=== PATIENT | female | born 1980 | race African-American/Black ===

== ENCOUNTER 2017-09-17 06:03 | Day surgery (SDC) | payer BC, OTHER ==
[2017-09-16 09:40] VITALS: BMI 35.7
[2017-09-17 06:35] LABS: #Basophils 0.1 thou/uL (0.0-0.2); #Eosinphils 0.1 thou/uL (0.0-0.7); #Lymphocytes 3.8 thou/uL (1.20-3.40); #Monocytes 0.6 thou/uL (0.11-0.59); #Neutrophils 3.8 thou/uL (1.40-6.50); %Basophils 0.6 % (0.0-1.0); %Eosinophils 1.6 % (0.0-10.0); %Lymphocytes 44.9 % (21.0-51.0); %Monocytes 7.6 % (0.0-10.0); Hematocrit 45.7 % (36.0-47.0); Mean Platelet Volume 8.2 fL (7.4-10.4); Red Blood Cell (RBC) Count 4.87 mill/uL (4.20-5.40); White Blood Cell (WBC) Count 8.3 thou/uL (4.8-10.8)
[2017-09-17] MEDS ORDERED: Fentanyl 100 MCG/2 ML VIAL ONE ×2 (07:13→09:18)
[2017-09-17] MEDS ORDERED: Promethazine HCl 25 MG/ML VIAL ONE (07:13)
[2017-09-17] MEDS ORDERED: Midazolam HCl 2 mg/2 ml Vial ONE ×2 (07:13→07:52)
[2017-09-17] MEDS ORDERED: Bacitracin Zinc Ointment 30 gm TUBE ONE (07:15)
[2017-09-17] MEDS ORDERED: Betamet Acet/Betamet Na Ph 30 MG/5 ML VIAL ONE (07:15)
[2017-09-17] MEDS ORDERED: Bupivacaine PF 0.5% 30 ML VIAL ONE (07:15)
[2017-09-17] MEDS ORDERED: CEFAZOLIN/Water 2 GM/20 ML SYRINGE ONE (07:52)
[2017-09-17] MEDS ORDERED: Ketorolac Tromethamine 30 MG/ML VIAL ONE ×2 (07:59→09:05)
[2017-09-17] MEDS ORDERED: Glycopyrrolate 0.2 MG/ML 5 ML SYRINGE ONE (07:59)
[2017-09-17] MEDS ORDERED: Propofol 200 MG/20 ML VIAL ONE (07:59)
[2017-09-17] MEDS ORDERED: ePHEDrine/0.9% NaCl/PF SYRINGE 50 mg/10 ml ONE (07:59)
[2017-09-17] MEDS ORDERED: Ondansetron HCl/PF 4 MG/2 ML Vial ONE (07:59)
[2017-09-17] MEDS ORDERED: PHENYLEPHRINE-NS 100 MCG/ML 10 ML SYRINGE ONE (07:59)
[2017-09-17] MEDS ORDERED: Lidocaine 1% PF 5 ML VIAL ONE (07:59)
[2017-09-17] MEDS ORDERED: HYDROcodone/Acetaminophen 5/325 mg Tablet ONE (10:26)
--- NOTE | 2017-10-05 09:42 | OP ---
DATE OF SURGERY: 09/17/2017 SURGEON: Shawn Huang MD ANESTHESIA: General LMA technique augmented by 20 mL of 0.5% Marcaine block tung-incisional. PREOPERATIVE DIAGNOSIS: Carpal tunnel syndrome. POSTOPERATIVE DIAGNOSIS AND FINDINGS: Carpal tunnel syndrome, very tight transcarpal ligament and fl attened median nerve of 1 cm area in the center of the carpal tunnel. PROCEDURE PERFORMED: Right carpal tunnel release. SPECIMENS: None. ESTIMATED BLOOD LOSS: Less than 5 mL. TOURNIQUET TIME: 14 minutes. INDICATIONS: Failed conservative treatment including injection, therapy, medications, time, an d cessation of activity. Positive diagnostic studies and exam. DESCRIPTION OF PROCEDURE: After successful anesthesia listed above, the limb was prepped and draped. Timeout was done appropriately. The limb exsanguinated and tourniquet inflated to 250 mmHg pressur e. We outlined and made an incision along medial and lateral in line with the ring finger and as far dis dimple as Monroy's cardinal line as far proximal as 5 mm distal volar wrist flexion crease. This incisi on was carried through skin, subcutaneous tissue until we reached the transverse carpal ligament. Pr otecting all of the outline structures with combination of self-retaining retractor and Weitlaner, we used a Lakeland blade into the mid portion transverse carpal ligament. This was done just over the pa lmaris longus tendon. We then released under direct visualization using a combination of [place]eland blad e and tenotomy incisions, the transcarpal ligament from the midpoint distal and then from the midpoin t proximal. Direct visualization was used and we then saw there was no flexor tenosynovitis, but ind eed the patient did have a flattened 1 cm area with mild stippeling of the median nerve under the tra nsverse carpal ligament in the center of the carpal tunnel. Tourniquet deflated. Hemostasis obtained. A 3 mL Celestone dripped over the area of the median nerv e where there was flattening and the incision was closed with interrupted 4-0 nylon mattress pattern. Bulky dressing was applied. The patient left the operating room without evidence of anesthetic or operative complications.
== END 2017-09-17 10:46 | disposition home or self-care (01) ==
LOC: SDC 06:03
PROVIDERS: ATTEND Orthopaedic Surgery Hand Surgery
PROC: 01N50ZZ Release Median Nerve, Open Approach (ICD-10-PCS; principal; 2017-09-17)
DX: G56.01 Carpal tunnel syndrome, right upper limb (principal); F17.200 Nicotine dependence, unspecified, uncomplicated; Z90.710 Acquired absence of both cervix and uterus; Z98.890 Other specified postprocedural states
CPT/HCPCS: 36415; 85025; 96372; 96374; J0702; J1885; J2001; J2250; J2405; J2550; J2704; J3010; S0020

== ENCOUNTER 2018-05-15 18:19 | Emergency (ER) | payer OTHER ==
[2018-05-15] MEDS ORDERED: Ibuprofen 800 MG TAB ONE (21:46)
[2018-05-15] MEDS ORDERED: Penicillin V Potassium 250 MG TAB ONE (21:46)
== END 2018-05-15 21:52 | disposition home or self-care (01) ==
LOC: SCSER 18:19
DX: K04.7 Periapical abscess without sinus (principal); K02.9 Dental caries, unspecified; F17.210 Nicotine dependence, cigarettes, uncomplicated
CPT/HCPCS: 99283

== ENCOUNTER 2018-08-12 21:20 | Emergency (ER) | payer OTHER ==
[2018-08-12] MEDS ORDERED: Albuterol Sulfate 2.5 mg/3 ml Neb ONE ×2 (21:40→22:15)
--- NOTE | 2018-08-12 22:12 | RAD ---
RADIOGRAPH CHEST 2 VIEWS: 08/12/19 HISTORY: 38-year-old female with cough, chest congestion, and wheezing. FINDINGS: There is no air space density, pulmonary edema, pleural effusion, pneumothorax, or cardiomegaly. IMPRESSION: No acute cardiopulmonary findings. jn [] POS: [facility]
== END 2018-08-12 22:37 | disposition home or self-care (01) ==
LOC: SCSER 21:20
DX: J20.9 Acute bronchitis, unspecified (principal); F17.210 Nicotine dependence, cigarettes, uncomplicated
CPT/HCPCS: 71046; 87804; J7611

== ENCOUNTER 2018-09-15 20:20 | Emergency (ER) | payer OTHER ==
[2018-09-15 20:55] LABS: #Basophils 0.1 thou/uL (0.0-0.2); #Lymphocytes 3.8 thou/uL (1.20-3.40); #Monocytes 0.6 thou/uL (0.11-0.59); #Neutrophils 4.6 thou/uL (1.40-6.50); %Basophils 1.1 % (0.0-1.0); %Eosinophils 0.5 % (0.0-10.0); %Lymphocytes 41.6 % (21.0-51.0); %Monocytes 6.8 % (0.0-10.0); Hemoglobin 14.9 g/dL (12.0-16.0); Mean Corpuscular HGB CONC 33.6 g/dL (32.0-36.0); Mean Corpuscular Hemoglobin 30.7 pg (27.0-31.0); Mean Corpuscular Volume 91.3 fL (78.0-98.0); Mean Platelet Volume 8.1 fL (7.4-10.4); Platelet Count 240 thou/uL (130-400); RBC Distribution Width 12.2 % (11.5-14.5); Red Blood Cell (RBC) Count 4.86 mill/uL (4.20-5.40); White Blood Cell (WBC) Count 9.2 thou/uL (4.8-10.8)
[2018-09-15 21:22] LABS: ALT (SGPT) 9 U/L (8-55); AST (SGOT) 21 U/L (5-34); Alkaline Phosphatase 62 U/L (40-150); Anion Gap 13 mmol/L (10-20); BUN (Urea Nitrogen) 9 mg/dL (7.0-18.7); Bilirubin, Total 0.3 mg/dL (0.2-1.2); Calc. Creatinine Clearance 0 mL/min (70-130); Calcium 9.3 mg/dL (7.8-10.44); Carbon Dioxide 24 mmol/L (22-29); Chloride 104 mmol/L (98-107); Estimated GFR-MDRD Greater than 90; Globulin 3.9 g/dL (2.4-3.5); Glucose 87 mg/dL (70-105); Potassium 4.7 mmol/L (3.5-5.1); Protein, Total 7.9 g/dL (6.0-8.3); Sodium 136 mmol/L (136-145); Troponin I Less than 0.010 ng/mL (< 0.028)
[2018-09-15] MEDS ORDERED: Meclizine HCl 25 MG TAB ONE (21:32)
[2018-09-15] MEDS ORDERED: Albuterol Sulfate 2.5 mg/3 ml Neb ONE (21:47)
[2018-09-15] MEDS ORDERED: Diazepam 5 MG TAB ONE (22:39)
--- NOTE | 2018-09-16 07:39 | RAD ---
SINGLE VIEW OF THE CHEST: 09/15/18 COMPARISON: 08/12/18 HISTORY: Shortness of breath since yesterday and dyspnea. FINDINGS: Single view of the chest shows a normal sized cardiomediastinal silhouette. There is no evidence of c onsolidation, mass, or pleural effusion. The bones are unremarkable. IMPRESSION: No evidence of acute cardiopulmonary disease. POS: [facility]
--- NOTE | 2018-09-16 07:42 | CT ---
NONCONTRAST HEAD CT: HISTORY: Dizziness. The patient feels off balance. COMPARISON: 07/16/2016. FINDINGS: No parenchymal hemorrhage. No extraaxial hematoma. No midline shift. Basilar cisterns are patent. Brain volume is age appropriate. Cortical limon-white matter differentiation is preserved. Ventricles and sulci are patent and symmetric. Adequate aeration of the sinuses and mastoid air cells. Calvarium is intact. IMPRESSION: No acute intracranial process. POS: [facility]
--- NOTE | 2018-09-26 16:41 | EKG ---
Test Reason : Blood Pressure : / mmHG Vent. Rate : 075 BPM Atrial Rate : 075 BPM P-R Int : 158 ms QRS Dur : 084 ms QT Int : 382 ms P-R-T Axes : 042 027 039 degrees QTc Int : 426 ms Normal sinus rhythm with sinus arrhythmia Normal ECG Confirmed by JAYLEEN SEPULVEDA DO ([id number]), avid editor YUE MONGE ([id number]) on 09/26/2018 4:40:48 PM Referred By: Confirmed By:JAYLEEN SEPULVEDA DO
== END 2018-09-15 23:28 | disposition home or self-care (01) ==
LOC: ERS 20:20
DX: R06.02 Shortness of breath (principal); R42 Dizziness and giddiness; Z71.6 Tobacco abuse counseling; F17.210 Nicotine dependence, cigarettes, uncomplicated
CPT/HCPCS: 36415; 70450; 71045; 80053; 82550; 82553; 84484; 85025; 93005; 94640; 96360; 96361; 99406; J7611; J7620

== ENCOUNTER 2019-05-26 11:10 | Emergency (ER) | payer OTHER ==
[2019-05-26] MEDS ORDERED: Fluorescein Opthalmic Strip ONE (12:22)
[2019-05-26] MEDS ORDERED: Proparacaine 0.5% Opth 15 ML BOT ONE (12:22)
== END 2019-05-26 12:52 | disposition home or self-care (01) ==
LOC: ERS 11:10
DX: H10.021 Other mucopurulent conjunctivitis, right eye (principal); J01.90 Acute sinusitis, unspecified; F17.210 Nicotine dependence, cigarettes, uncomplicated; Z79.899 Other long term (current) drug therapy
CPT/HCPCS: 99283

== ENCOUNTER 2019-06-05 09:05 | Emergency (ER) | payer OTHER, SELFPAY ==
[2019-06-05] MEDS ORDERED: Fluorescein Opthalmic Strip ONE (10:16)
[2019-06-05] MEDS ORDERED: Proparacaine 0.5% Opth 15 ML BOT ONE (10:16)
== END 2019-06-05 11:05 | disposition home or self-care (01) ==
LOC: ERS 09:05
DX: H11.423 Conjunctival edema, bilateral (principal); F17.210 Nicotine dependence, cigarettes, uncomplicated
CPT/HCPCS: 99283

== ENCOUNTER 2019-06-07 12:37 | Emergency (ER) | payer OTHER, SELFPAY ==
[2019-06-07 13:28] LABS: Bilirubin Negative (Negative); Blood, Urine Negative (Negative); Glucose, Urine (Dipstick) Negative (Negative); Leukocyte Trace (Negative); Nitrite Negative (Negative); Protein, Urine (Dipstick) Negative (Neg-Trace); Urobilinogen 0.2 mg/dL (Less than 2)
[2019-06-07 13:30] LABS: Clarity Hazy (Clear)
[2019-06-07 13:36] LABS: Bacteria/HPF 1+ HPF (None Seen); RBC/HPF None Seen HPF (0-3)
[2019-06-07] MEDS ORDERED: Fluorescein Opthalmic Strip ONE (13:40)
[2019-06-07 13:56] LABS: Pregnancy Test - Urine (BHCG) Negative (Negative); Pregu Control Background? CLEAR/WHITE (CLR/WHITE); Pregu Control Bar Appear? YES (CONTROL BAR); Specific Gravity 1.026 (1.002-1.036)
[2019-06-07 13:58] LABS: #Eosinphils 0.1 thou/uL (0.0-0.7); #Lymphocytes 2.8 thou/uL (1.20-3.40); #Monocytes 0.5 thou/uL (0.11-0.59); #Neutrophils 2.9 thou/uL (1.40-6.50); %Basophils 0.5 % (0.0-1.0); %Eosinophils 1.6 % (0.0-10.0); %Lymphocytes 44.4 % (21.0-51.0); %Monocytes 8.3 % (0.0-10.0); %Neutrophils 45.2 % (42.0-75.0); Hemoglobin 13.8 g/dL (12.0-16.0); Mean Corpuscular HGB CONC 31.9 g/dL (32.0-36.0); Mean Corpuscular Hemoglobin 29.7 pg (27.0-31.0); Mean Corpuscular Volume 93.2 fL (78.0-98.0); Mean Platelet Volume 8.4 fL (7.4-10.4); Platelet Count 236 thou/uL (130-400); RBC Distribution Width 13.2 % (11.5-14.5); Red Blood Cell (RBC) Count 4.62 mill/uL (4.20-5.40); White Blood Cell (WBC) Count 6.4 thou/uL (4.8-10.8)
[2019-06-07 14:07] LABS: Anion Gap 10 mmol/L (10-20); BUN (Urea Nitrogen) 8 mg/dL (7.0-18.7); Calc. Creatinine Clearance 0 mL/min (70-130); Calcium 8.7 mg/dL (7.8-10.44); Carbon Dioxide 26 mmol/L (22-29); Chloride 108 mmol/L (98-107); Estimated GFR-MDRD Greater than 90; Glucose 100 mg/dL (70-105); Potassium 3.9 mmol/L (3.5-5.1); Sodium 140 mmol/L (136-145)
--- NOTE | 2019-06-07 14:57 | CT ---
CT of the orbits: 06/07/2019 COMPARISON: None HISTORY: Bilateral eye pain and redness TECHNIQUE: Axial CT imaging obtained at 2 mm intervals through the orbits with IV contrast. Coronal a nd sagittal reformatted imaging obtained. FINDINGS: The imaged brain parenchyma appears grossly unremarkable. The frontal sinuses, maxillary sinuses, ethmoid air cells, sphenoid sinuses, and mastoid air cells ar e grossly unremarkable. The retroantral fat and the parapharyngeal fat appears clear bilaterally. There is a small low-density area within the nasopharyngeal mucosa on the right which appears unchang ed when compared to a [address] This likely represents a mucosal cyst. There is no radiopaque foreign body identified. The orbits/globes are normal and symmetric in size an d density. The intraconal fat appears normal bilaterally. The extraocular muscles appear symmetric and normal bilaterally. There is mild stranding of the periorbital fat bilaterally in the region of the upper and lower eyeli ds, which may signify mild bilateral preseptal cellulitis. No evidence for post septal cellulitis seen. No evidence for abscess. Osseous structures demonstrate no acute findings. IMPRESSION: Mild periorbital soft tissue stranding as above. No abscess or evidence of postseptal katie lulitis.
[2019-06-07] MEDS ORDERED: Azithromycin 250 MG TAB ONE (15:37)
[2019-06-07] MEDS ORDERED: Lidocaine 1% PF 5 ML VIAL ONE (15:37)
[2019-06-07] MEDS ORDERED: metroNIDAZOLE 500 MG TAB ONE (15:37)
[2019-06-07] MEDS ORDERED: cefTRIAXone\\ROCEPHIN 250 MG VIAL ONE (15:37)
[2019-06-08 23:05] LABS: Chlam.trachomatis by PCR,Urine Not Detected (NotDetected)
== END 2019-06-07 16:05 | disposition home or self-care (01) ==
LOC: SCSER 12:37
DX: L03.213 Periorbital cellulitis (principal); M02.361 Reiter's disease, right knee; F17.210 Nicotine dependence, cigarettes, uncomplicated; Z79.899 Other long term (current) drug therapy
CPT/HCPCS: 70481; 80048; 81003; 81015; 81025; 85025; 87491; 87591; 96372; J0696; J2001

== ENCOUNTER 2019-06-20 08:26 | Emergency (ER) | payer OTHER ==
[2019-06-20] MEDS ORDERED: Ketorolac Tromethamine 30 MG/ML VIAL ONE (08:53)
== END 2019-06-20 09:19 | disposition home or self-care (01) ==
LOC: ERS 08:26
DX: M25.561 Pain in right knee (principal); F17.210 Nicotine dependence, cigarettes, uncomplicated; W18.30XA Fall on same level, unspecified, initial encounter
CPT/HCPCS: 96372; J1885

== ENCOUNTER 2019-07-20 15:03 | Outpatient (CLI) | payer OTHER ==
--- NOTE | 2019-07-20 15:26 | MMO ---
Bilateral MAMMO Bilat Screen [facility]. CLINICAL HISTORY: Patient is 39 years old and is seen for screening. The patient has no family history of breast cancer. The patient has no personal history of cancer. VIEWS: The views performed were: bilateral craniocaudal and bilateral mediolateral oblique. This study has been interpreted with the assistance of computer-aided detection. MAMMOGRAM FINDINGS: The breasts are heterogeneously dense, which could obscure a lesion on mammography. There are intramammary lymph nodes seen in both breasts. There are no suspicious masses, suspicious calcifications, or new areas of architectural distortion. IMPRESSION: THERE IS NO MAMMOGRAPHIC EVIDENCE OF MALIGNANCY. A ROUTINE FOLLOW-UP MAMMOGRAM IN 1 YEAR IS RECOMMENDED. ACR BI-RADS Category 2 - Benign finding MAMMOGRAPHY NOTE: 1. A negative mammogram report should not delay a biopsy if a dominant of clinically suspicious mass is present. 2. Approximately 10% to 15% of breast cancers are not detected by mammography. 3. Adenosis and dense breasts may obscure an underlying neoplasm. Reported by: ELIJAH FALK MD Electonically Signed: [id number]
== END 2019-07-20 15:04 | disposition home or self-care (01) ==
LOC: BICMAMMO 15:03
PROVIDERS: ATTEND Family Medicine
DX: Z12.31 Encounter for screening mammogram for malignant neoplasm of breast (principal)
CPT/HCPCS: 77067

== ENCOUNTER 2021-11-07 17:07 | Emergency (ER) | payer OTHER | END 2021-11-07 17:49 | disposition left against medical advice (07) | LOC: ERS 17:07 | DX: Z53.21 Procedure and treatment not carried out due to patient leaving prior to being seen by health care provider (principal) ==